=== PATIENT | male | born 1975 | race Hispanic/Latino ===

== ENCOUNTER 2020-11-04 10:59 | Outpatient (CLI) | payer OTHER | END 2020-11-04 11:00 | disposition home or self-care (01) | LOC: CSHRAD 10:59 | PROVIDERS: ATTEND Psychiatry & Neurology Neurology | DX: M25.571 Pain in right ankle and joints of right foot (principal); M25.541 Pain in joints of right hand; M25.552 Pain in left hip; Z98.890 Other specified postprocedural states; M19.071 Primary osteoarthritis, right ankle and foot; M19.041 Primary osteoarthritis, right hand ==

== ENCOUNTER 2024-04-17 14:20 | Emergency (ER) | payer BC, SELFPAY | END 2024-04-17 15:20 | disposition home or self-care (01) | LOC: CSHERS 14:20 | DX: R05.9 Cough, unspecified (principal); I10 Essential (primary) hypertension | CPT/HCPCS: 99283 ==